=== PATIENT | female | born 1975 | race Two or more races ===

== ENCOUNTER 2017-09-21 14:25 | Emergency (ER) | payer OTHER | END 2017-09-21 15:48 | disposition left against medical advice (07) | LOC: ED 14:25 | DX: Z53.21 Procedure and treatment not carried out due to patient leaving prior to being seen by health care provider (principal) | CPT/HCPCS: J7030 ==

== ENCOUNTER 2017-09-21 16:51 | Emergency (ER) | payer OTHER ==
[~2017-09-21] VITALS: Ht 160 cm; Wt 70.3 kg
[2017-09-21 17:06] VITALS: Ht 160 cm; Wt 70.3 kg
[2017-09-21 22:14] LABS: BASOPHIL % 0.6 % (0-2); PLATELET COUNT 302 x10^3mcL (130-400)
[2017-09-21 22:20] LABS: CALCIUM 8.6 mg/dL (8.5-10.1); CARBON DIOXIDE 25.8 mmol/L (21-32); CHLORIDE SERUM 106 mmol/L (98-107); CREATININE SERUM 0.7 mg/dL (0.6-1.0); GFR1 > 60 mL/min; GLUCOSE SERUM 101 mg/dL (74-106); POTASSIUM SERUM 3.7 mmol/L (3.5-5.1); SODIUM SERUM 141 mmol/L (136-145)
[2017-09-21 22:23] LABS: RED CELL DISTRIBUTION WIDTH 15.2 % (11.5-14.5)
[2017-09-21 22:26] LABS: ALBUMIN 3.8 g/dL (3.4-5.0); ALKALINE PHOSPHATASE 60 U/L (46-116); ALT/SGPT 18 U/L (14-59); AMYLASE 57 U/L (25-115); AST/SGOT 12 U/L (15-37); BILIRUBIN TOTAL 0.3 mg/dL (0.20-1.00); LIPASE 151 IU/L (73-393); TOTAL PROTEIN, SERUM 7.7 g/dL (6.4-8.2)
[2017-09-21 22:44] LABS: microscopic required? YES; urine erythrocyte 3+ (NEGATIVE)
[2017-09-21 22:48] VITALS: BP 102/55
== END 2017-09-21 22:48 | disposition home or self-care (01) ==
LOC: ED 16:51
PROVIDERS: Emergency Medicine
DX: R10.11 Right upper quadrant pain (principal)
CPT/HCPCS: J1885; J2270; J2405; Q0092

== ENCOUNTER 2019-06-25 18:28 | Emergency (ER) | payer OTHER ==
[~2019-06-25] VITALS: Ht 160 cm; Wt 70.3 kg
[2019-06-25 18:38] VITALS: Ht 160 cm; Wt 70.3 kg
[2019-06-25 19:58] LABS: BASOPHIL % 0.6 % (0-2); PLATELET COUNT 366 x10^3mcL (130-400)
[2019-06-25 20:00] LABS: RED CELL DISTRIBUTION WIDTH 16.2 % (11.5-14.5)
[2019-06-25 20:31] LABS: CARBON DIOXIDE 25.9 mmol/L (21-32); CHLORIDE SERUM 104 mmol/L (98-107); CREATININE SERUM 0.7 mg/dL (0.6-1.0); GFR1 > 60 mL/min; GLUCOSE SERUM 109 mg/dL (74-106); POTASSIUM SERUM 4.1 mmol/L (3.5-5.1); SODIUM SERUM 141 mmol/L (136-145)
[2019-06-25 20:35] LABS: ALBUMIN 4.1 g/dL (3.4-5.0); ALKALINE PHOSPHATASE 74 U/L (46-116); ALT/SGPT 14 U/L (14-59); AST/SGOT 13 U/L (15-37); BILIRUBIN TOTAL 0.2 mg/dL (0.20-1.00); LIPASE 149 IU/L (73-393); TOTAL PROTEIN, SERUM 8.2 g/dL (6.4-8.2)
[2019-06-26 01:45] VITALS: BP 110/76
== END 2019-06-26 01:45 | disposition home or self-care (01) ==
LOC: ED 18:28
DX: R11.2 Nausea with vomiting, unspecified (principal); G89.18 Other acute postprocedural pain
CPT/HCPCS: J1885; J2405